=== PATIENT | male | born 1955 | race Caucasian/White ===

== ENCOUNTER 2024-03-31 10:18 | Emergency (ER) | payer OTHER, MEDICARE, MEDICAID, SELFPAY ==
[2024-03-31 10:47] VITALS: BP 138/85; PULSE 74; RESP 20; TEMP 36.8; O2SAT 99
[2024-03-31 11:10] LABS: MANUAL DIFF FLAG NO
[2024-03-31 11:11] LABS: Basophils Absolute Auto 0.1 X10*3/uL (0.0-0.2); Basophils Percent Auto 0.9 % (0-2); Eosinophils Absolute Auto 0.2 X10*3/uL (0.0-0.4); Hemoglobin 12.9 g/dl (14.0-18.0); Imm Gran Abs Auto 0.01 X10*3/uL (0.00-0.03); Imm Gran Pct Auto 0.2 % (0.0-0.4); Lymphocytes Absolute Auto 0.9 X10*3/uL (1.2-4.9); Lymphocytes Percent Auto 14.7 % (20-40); Mean Corpuscular HGB Conc 34.9 g/dl (31.0-36.0); Mean Corpuscular Hemoglobin 30.3 pg (27.0-33.0); Mean Corpuscular Volume 86.9 fL (80.0-98.0); Mean Platelet Volume 9.1 fL (9.4-12.4); Monocytes Absolute Auto 0.7 X10*3/uL (0.1-1.2); Monocytes Percent Auto 11.7 % (2-11); Neutrophils Percent Auto 68.5 % (45-73); Platelet Count 191 X10*3/uL (160-400); Red Blood Count 4.26 X10*6/uL (4.60-5.80); Red Cell Distribution Width 15.1 % (11.0-16.0); White Blood Count 5.8 X10*3/uL (4.8-10.8)
[2024-03-31 11:39] LABS: Alanine Aminotransferase 19 U/L (0-40); Albumin Level 4.6 g/dL (3.5-5.0); Alkaline Phosphatase 83 U/L (39-117); Anion Gap 12 (12-20); Aspartate Amino Transferase 19 U/L (5-37); Bilirubin Direct 0.2 mg/dL (0.0-0.5); Bilirubin Total 0.5 mg/dL (0.0-1.0); Blood Urea Nitrogen 12 mg/dL (9-16); Calcium 9.5 mg/dL (8.4-10.2); Carbon Dioxide 24 mmol/L (22-29); Chloride 105 mmol/L (96-108); Creatinine Clr Calc Pharmacy 91.3; Estimated Glomerular Filt Rate > 60; Glucose Random 96 mg/dL (60-115); Lipase 9 U/L (8-78); Potassium 3.7 mmol/L (3.3-5.1); Sodium 137 mmol/L (135-145); Total Protein 8.1 g/dL (6.5-8.0)
[2024-03-31 11:43] LABS: B Type Natriuretic Peptide 157 pg/mL (<100)
[2024-03-31 13:32] VITALS: BP 148/80; PULSE 77; RESP 20; TEMP 37; O2SAT 97
--- NOTE | 2024-03-31 15:08 | ED.GENADULT ---
HPI - General Adult General Chief complaint: Extremity Injury, Lower Stated complaint: leg issues Time Seen by Provider: 03/31/24 15:03 Source: patient Mode of arrival: ambulatory Limitations: no limitations History of Present Illness HPI narrative: Patient is a 68-year-old male with past medical history of non-Hodgkin's lymphoma currently in remission by his account since October of 2023 still following by Oncology, hypertension, hyperlipidemia who presents emergency department for evaluation of painful lumps to the bilateral lower extremities. He reports that he 1st started with a painful lump to the proximal medial lower leg about 1 month ago. He was seen by his primary care doctor, an ultrasound was obtained which revealed no evidence of a blood clot, he states his PCP has ordered an MRI but he is awaiting insurance approval. Over the past month he has developed additional lumps on the leg, to the right proximal medial lower leg and a small 1 to the right anterior henson. They are red and painful to the touch. He also states he has 2 palpable lumps in the distal medial thigh 1 on each side. Related Data Allergies Allergy/AdvReac Type Severity Reaction Status Date / Time No Known Allergies Allergy Verified 03/31/24 10:52 Review of Systems Review of Systems: Yes all other systems are reviewed and are negative PMFSH Past Medical History Attestation statement: The following information was validated with the patient. Source: old records reviewed Social History Social History Do you have a plan to hurt others: No Plan Physical Exam ED Vital Signs: Vital Signs - 24 hr 03/31/24 10:47 03/31/24 13:32 Temperature 98.3 F 98.6 F Pulse Rate 74 77 Respiratory Rate 20 20 Blood Pressure 138/85 148/80 H Pulse Oximetry 99 97 Oxygen Delivery Method Room Air Room Air BMI result Body Mass Index 30.0 Appearance: Alert.?Oriented to person, place and time. No acute distress.?Normal affect. Eyes: Pupils equal, round and reactive to light.? ENT: Pharynx normal.?? Neck: Normal inspection.? Neck supple.?? CVS: Heart sounds normal. Normal heart rate and rhythm.? Pulses normal.?? Respiratory: No respiratory distress.? Lung sounds clear to auscultation bilaterally?? Abdomen: Soft and non-tender. Normoactive bowel sounds. No pulsatile mass.?? Skin: Skin warm and dry.? Normal skin color. Bilateral lower extremities with erythematous painful nodules, no central fluctuance, warm and tender to touch ? Extremities: 1+ pitting bilateral lower extremity edema.? No calf ttp? Neuro: Moves all extremities spontaneously. Sensation intact bilaterally. Ambulates with normal steady gait. Medical Decision Making Medical Decision Making [facility] Narrative: Patient is a 68-year-old male with past medical history of non-Hodgkin's lymphoma in remission, hypertension, hyperlipidemia presenting to emergency department for evaluation of painful red lumps to the bilateral lower extremities as per HPI. Pertinent physical exam findings as per PE portion of this note. My attending doctor Salvador also evaluated the patient at bedside. Concern at this time for superficial skin infection, for which prescribed a course of doxy given the warmth and redness present. No area of fluctuance to suggest an abscess that would be amenable to incision and drainage. Given location, lower suspicion that this is secondary to his lymphoma. Reviewed worrisome signs and symptoms that would warrant prompt re-evaluation, otherwise discussed outpatient follow-up with PCP and oncologist, advised to contact their offices in 2 days. Advised use of acetaminophen and ibuprofen for pain in addition to his gabapentin which is chronically prescribed for neuropathy. 2+ DP/PT pulse bilaterally. No calf tenderness. Findings not consistent with DVT, given superficial presentation Differential Diagnosis Differential Diagnoses: The differential diagnosis associated with the presentation includes (See narrative above) Admission/Observation Consideration of admission/observation: Escalation of care including admission/observation considered Lab Data [facility] Lab Attestation statement: I reviewed the patient's lab results. CBC shows no leukocytosis, a mild anemia that does not meet transfusion criteria, no thrombocytopenia. No electrolyte derangement. No PÉREZ. No thrombocytopenia 03/31/24 11:06 03/31/24 11:06 Labs: Lab Results 03/31/24 Range/Units 11:06 WBC 5.8 (4.8-10.8) X10*3/uL RBC 4.26 L (4.60-5.80) X10*6/uL Hgb 12.9 L (14.0-18.0) g/dl Hct 37.0 L (42.0-52.0) % MCV 86.9 (80.0-98.0) fL MCH 30.3 (27.0-33.0) pg MCHC 34.9 (31.0-36.0) g/dl RDW 15.1 (11.0-16.0) % Plt Count 191 (160-400) X10*3/uL MPV 9.1 L (9.4-12.4) fL Immature Gran % (Auto) 0.2 (0.0-0.4) % Neut % (Auto) 68.5 (45-73) % Lymph % (Auto) 14.7 L (20-40) % [place] % (Auto) 11.7 H (2-11) % Eos % (Auto) 4.0 (0-4) % Baso % (Auto) 0.9 (0-2) % Lymph # (Auto) 0.9 L (1.2-4.9) X10*3/uL [place] # (Auto) 0.7 (0.1-1.2) X10*3/uL Eos # (Auto) 0.2 (0.0-0.4) X10*3/uL Baso # (Auto) 0.1 (0.0-0.2) X10*3/uL Abs Immat Gran (auto) 0.01 (0.00-0.03) X10*3/uL Absolute Neuts (auto) 4.0 (2.0-8.3) x10*3/uL Absolute Nucleated RBC 0.000 (0.0-0.012) X10*3/uL Nucleated RBC % (auto) 0.0 (0.0-0.2) /100WBC Sodium 137 (135-145) mmol/L Potassium 3.7 (3.3-5.1) mmol/L Chloride 105 (96-108) mmol/L Carbon Dioxide 24 (22-29) mmol/L Anion Gap 12 (12-20) BUN 12 (9-16) mg/dL Creatinine 0.99 (0.5-1.4) mg/dL Estim Creat Clear Calc 91.3 Estimated GFR > 60 Random Glucose 96 (60-115) mg/dL Calcium 9.5 (8.4-10.2) mg/dL Total Bilirubin 0.5 (0.0-1.0) mg/dL Direct Bilirubin 0.2 (0.0-0.5) mg/dL AST 19 (5-37) U/L ALT 19 (0-40) U/L Alkaline Phosphatase 83 (39-117) U/L C-Reactive Protein 0.39 (< or = 0.50) mg/dL B-Natriuretic Peptide 157 H (<100) pg/mL Total Protein 8.1 H (6.5-8.0) g/dL Albumin 4.6 (3.5-5.0) g/dL Lipase 9 (8-78) U/L Independent Historian Clinical information obtained from an independent historian. History obtained from or confirmed by: Spouse External Record Review External record reviewed: Outpatient record Prescription Management I considered prescription management with: Antibiotic Discharge Plan Discharge Clinical Impression: Cellulitis of leg Patient Disposition: Home, Self-Care Instructions: Cellulitis (ED) Additional Instructions: As discussed, presentation is concerning for a superficial cellulitis/infection of the skin. A prescription for an antibiotic has been sent to your pharmacy, please complete the entire course. On doxycycline, do not take pills immediately before going to bed and swallow pills with plenty of water. Avoid direct sunlight, iron, antacids, and Pepto Bismol. Call your provider if you develop new ringing in your ears, new problems hearing, dizziness, difficulty swallowing, rash, abdominal discomfort, nausea, or diarrhea.? Contact your primary care provider/oncologist office 1st thing Tuesday morning to arrange for a follow-up visit. Return with any new or worsening symptoms or concerns
[2024-03-31 15:33] LABS: C Reactive Protein 0.39 mg/dL (< or = 0.50)
[2024-03-31 16:33] VITALS: BP 148/80; PULSE 77; RESP 20; TEMP 37; O2SAT 97
== END 2024-03-31 16:34 | disposition home or self-care (01) ==
PROVIDERS: Nurse Practitioner Family; Emergency Provider Emergency Medicine; PCP Internal Medicine
DX: L03.115 Cellulitis of right lower limb (principal); L03.116 Cellulitis of left lower limb; M79.604 Pain in right leg; R60.0 Localized edema; I10 Essential (primary) hypertension; E78.5 Hyperlipidemia, unspecified
CPT/HCPCS: 36415; 80048; 80076; 83690; 83880; 85025; 86140; 99282; 99283

== ENCOUNTER 2024-04-23 15:45 | Emergency (ER) | payer OTHER, MEDICARE, MEDICAID, SELFPAY ==
--- NOTE | ~2024-04-23 | CT_ITS ---
CLINICAL HISTORY: left facial droop CT head without contrast Comparison: None Findings: Involutional change and nonspecific white matter hypodensity. No intracranial mass, midline shift, hydrocephalus, or acute hemorrhage. Orbits, paranasal sinuses, and mastoid air cells are unremarkable. No skull fracture Impression: 1. No acute findings This document has been electronically signed by: Tayler Arvizu MD on 04/23/2024 17:02:16
[2024-04-23 16:05] VITALS: BP 138/78; PULSE 96; RESP 18; TEMP 36.6; O2SAT 97; BMI 29.1
--- NOTE | 2024-04-23 16:06 | ED.NEUROSD ---
HPI - Neuro Symptoms/Deficit General Chief Complaint: General Medical Stated Complaint: Left face droopy started tuesday Time Seen by Provider: 04/23/24 21:57 Source: patient, RN notes reviewed and old records reviewed Mode of arrival: ambulatory Limitations: no limitations History of Present Illness ED Provider: Jennie CARR Narrative: 68-year-old male past medical history significant for hypertension, COPD presents for evaluation of left facial droop. Patient reports left facial droop for the last 3 days. He woke up Tuesday morning with drooping to left side of his face and when he tried to drink tea it was dripping out of the corner of his mouth. He has no headache or weakness to any other part of his body. He reports that he was not able to close his left eye Denies any fevers or chills He does not spend a lot of time outside Related Data Previous Rx's ?Medication ?Instructions ?Recorded doxycycline hyclate 100 mg capsule 100 mg PO BID #14 caps 03/31/24 prednisone 20 mg tablet 40 mg (2 x 20 mg) PO DAILY #8 tabs 04/23/24 valacyclovir 1 gram tablet 1,000 mg PO TID #20 tabs 04/23/24 Allergies Allergy/AdvReac Type Severity Reaction Status Date / Time No Known Allergies Allergy Verified 04/23/24 16:09 Review of Systems Constitutional: Constitutional: Denies body ache(s), Denies chills, Denies fever(s), Denies frequent falls and Denies headache(s) Eyes: Eyes: Denies blurry vision ENT: Denies vertigo and Denies headache(s) Cardiovascular: Cardiovascular: Denies chest pain and Denies dyspnea Respiratory: Respiratory: Denies cough and Denies dyspnea Gastrointestinal: Gastrointestinal: Denies abdominal pain, Denies nausea and Denies vomiting Musculoskeletal: Musculoskeletal: Denies back pain Integumentary/Breasts: Skin/Breast: Denies rash Neurologic: Denies vertigo, Denies frequent falls and Denies headache(s) Comments: Left facial droop Psychiatric: Psychiatric: Denies anxiety PMFSH Social History Social History Advance Directives: No Advance Directives Information Provided: No Do you have a plan to hurt others: No Plan Physical Exam Vital Signs: Vital Signs: Last Vital Signs Temp 98.2 F 04/23/24 21:52 Pulse 90 04/23/24 21:52 Resp 18 02/17/25 21:52 BP 140/76 H 04/23/24 21:52 Pulse Ox 97 04/23/24 21:52 O2 Del Method Room Air 04/23/24 21:52 BMI result Body Mass Index 29.1 Const: General: healthy appearing, comfortable, no acute distress, alert and awake Nutritional Appearance: well nourished Orientation/consciousness: patient oriented x3 HEENT: Head: Yes normocephalic and Yes atraumatic Eyes: Eyelids: Yes eyelids normal Conjunctivae: conjunctivae normal Sclerae: sclerae normal Corneas: corneas normal Pupils: Equal, round and reactive pupils present EOM: EOMs intact bilaterally Neck: Neck: Yes full ROM Resp: Effort & Inspection: normal respiratory effort, able to speak in complete sentences and not labored Skin: General skin exam: elasticity normal Neuro: Other: Left-sided facial droop affecting the left eyebrow, left lower eyelid, left side of the mouth. This also affects the forehead as the patient is unable to wrinkle the left side of his forehead. General: patient oriented x3 Cranial nerves: Yes Equal, round and reactive pupils present and Yes Bilaterally intact EOM present Cognition (Neuro): normal cognition Course Course Course Narrative: This is an RME: Additional HPI, ROS, PE not included below will be deferred to primary provider. RME assessment and note performed by: Kitty Bay PA-C This is a 68-year-old male with past medical history of non-Hodgkin's lymphoma currently in remission by his account following by Oncology, hypertension, hyperlipidemia who presents emergency department for evaluation of left sided facial droop since tuesday morning. Woke up with left sided facial droop. Reports yesterday his left eye started to be effected as well. No pain. Positive left-sided facial droop, with delayed left eye blinking. Negative pronator drift. He is not on anticoagulation. He is not on anticoagulation. Plan: Labs, CT head, further ER evaluation needed. Medical Decision Making Medical Decision Making [facility] Narrative: 68-year-old male past medical history as documented above presents for evaluation of left-sided facial droop. 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 This affects the forehead which differentiate this from a CVA. He would have a CT scan of the brain that was unremarkable. Labs are reassuring, EKG with no significant change compared to previous. He has no chest pain. The patient be discharged with prednisone and valacyclovir for Ruiz's palsy. I did add on Lyme testing however given the time of year in the fact that the patient does not spend a lot of time outdoors this is less likely Differential Diagnosis Differential Diagnoses: The differential diagnosis associated with the presentation includes Uriz's palsy CVA TIA Neuropathy Cranial nerve 7 palsy Admission/Observation Consideration of admission/observation: Escalation of care including admission/observation considered Lab Data [facility] Lab Attestation statement: I reviewed the patient's lab results. No leukocytosis or significant anemia. Normal platelet count. No significant electrolyte abnormalities. Normal renal function 04/23/24 17:29 04/23/24 17:29 Labs: Lab Results 04/23/24 Range/Units 17:29 WBC 8.4 (4.8-10.8) X10*3/uL RBC 4.43 L (4.60-5.80) X10*6/uL Hgb 13.5 L (14.0-18.0) g/dl Hct 39.2 L (42.0-52.0) % MCV 88.5 (80.0-98.0) fL MCH 30.5 (27.0-33.0) pg MCHC 34.4 (31.0-36.0) g/dl RDW 15.0 (11.0-16.0) % Plt Count 234 (160-400) X10*3/uL MPV 9.4 (9.4-12.4) fL Immature Gran % (Auto) 0.4 (0.0-0.4) % Neut % (Auto) 71.1 (45-73) % Lymph % (Auto) 11.7 L (20-40) % [place] % (Auto) 12.5 H (2-11) % Eos % (Auto) 3.7 (0-4) % Baso % (Auto) 0.6 (0-2) % Lymph # (Auto) 1.0 L (1.2-4.9) X10*3/uL [place] # (Auto) 1.1 (0.1-1.2) X10*3/uL Eos # (Auto) 0.3 (0.0-0.4) X10*3/uL Baso # (Auto) 0.1 (0.0-0.2) X10*3/uL Abs Immat Gran (auto) 0.03 (0.00-0.03) X10*3/uL Absolute Neuts (auto) 6.0 (2.0-8.3) x10*3/uL Absolute Nucleated RBC 0.000 (0.0-0.012) X10*3/uL Nucleated RBC % (auto) 0.0 (0.0-0.2) /100WBC ESR 10 (0-15) MM/HR PT 12.9 H (10.9-12.4) SEC INR 1.1 (0.9-1.1) Sodium 141 (135-145) mmol/L Potassium 4.3 (3.3-5.1) mmol/L Chloride 105 (96-108) mmol/L Carbon Dioxide 26 (22-29) mmol/L Anion Gap 14 (12-20) BUN 16 (9-16) mg/dL Creatinine 1.15 (0.5-1.4) mg/dL Estim Creat Clear Calc 77.5 Estimated GFR > 60 Random Glucose 104 (60-115) mg/dL Calcium 10.4 H D (8.4-10.2) mg/dL Magnesium 2.2 (1.6-2.6) mg/dL Total Bilirubin 0.6 (0.0-1.0) mg/dL Direct Bilirubin 0.2 (0.0-0.5) mg/dL AST 30 (5-37) U/L ALT 21 (0-40) U/L Alkaline Phosphatase 85 (39-117) U/L C-Reactive Protein 0.30 (< or = 0.50) mg/dL Total Protein 8.6 H (6.5-8.0) g/dL Albumin 4.8 (3.5-5.0) g/dL Radiology Impression Discussion of test interpretation with radiology: I have reviewed the radiologist's reading. Radiologist Impression: Findings: Involutional change and nonspecific white matter hypodensity. No intracranial mass, midline shift, hydrocephalus, or acute hemorrhage. Orbits, paranasal sinuses, and mastoid air cells are unremarkable. No skull fracture Impression: 1. No acute findings This document has been electronically signed by: Tayler Arvizu MD on 04/23/2024 17:02:16 Discharge Plan Discharge Clinical Impression: Ruiz's palsy Patient Disposition: Home, Self-Care Instructions: Ruiz Palsy (ED) Additional Instructions: Your workup in the ER today was reassuring. Your symptoms are most likely related to a condition called Ruiz's palsy. 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 You should also wear an eye patch at night to prevent your eye from drying out Follow-up with your primary doctor, return for new or worsening symptoms Prescriptions: New prednisone 20 mg tablet 40 mg PO DAILY Qty: 8 0RF valacyclovir 1 gram tablet 1,000 mg PO TID Qty: 20 0RF No Action doxycycline hyclate 100 mg capsule 100 mg PO BID Qty: 14 0RF Print Language: [place]
[2024-04-23 17:34] LABS: MANUAL DIFF FLAG NO
[2024-04-23 17:44] LABS: Basophils Absolute Auto 0.1 X10*3/uL (0.0-0.2); Basophils Percent Auto 0.6 % (0-2); Eosinophils Absolute Auto 0.3 X10*3/uL (0.0-0.4); Eosinophils Percent Auto 3.7 % (0-4); Hematocrit 39.2 % (42.0-52.0); Hemoglobin 13.5 g/dl (14.0-18.0); Imm Gran Abs Auto 0.03 X10*3/uL (0.00-0.03); Imm Gran Pct Auto 0.4 % (0.0-0.4); Lymphocytes Percent Auto 11.7 % (20-40); Mean Corpuscular HGB Conc 34.4 g/dl (31.0-36.0); Mean Corpuscular Hemoglobin 30.5 pg (27.0-33.0); Mean Corpuscular Volume 88.5 fL (80.0-98.0); Mean Platelet Volume 9.4 fL (9.4-12.4); Monocytes Absolute Auto 1.1 X10*3/uL (0.1-1.2); Monocytes Percent Auto 12.5 % (2-11); Neutrophils Percent Auto 71.1 % (45-73); Platelet Count 234 X10*3/uL (160-400); Red Blood Count 4.43 X10*6/uL (4.60-5.80); White Blood Count 8.4 X10*3/uL (4.8-10.8)
[2024-04-23 17:47] LABS: INTERNATIONAL NORM RATIO 1.1 (0.9-1.1); Prothrombin Time 12.9 SEC (10.9-12.4)
[2024-04-23 18:08] LABS: Alanine Aminotransferase 21 U/L (0-40); Albumin Level 4.8 g/dL (3.5-5.0); Alkaline Phosphatase 85 U/L (39-117); Anion Gap 14 (12-20); Aspartate Amino Transferase 30 U/L (5-37); Bilirubin Direct 0.2 mg/dL (0.0-0.5); Bilirubin Total 0.6 mg/dL (0.0-1.0); Blood Urea Nitrogen 16 mg/dL (9-16); Calcium 10.4 mg/dL (8.4-10.2); Carbon Dioxide 26 mmol/L (22-29); Chloride 105 mmol/L (96-108); Creatinine Clr Calc Pharmacy 77.5; Estimated Glomerular Filt Rate > 60; Glucose Random 104 mg/dL (60-115); Magnesium 2.2 mg/dL (1.6-2.6); Potassium 4.3 mmol/L (3.3-5.1); Sodium 141 mmol/L (135-145); Total Protein 8.6 g/dL (6.5-8.0)
[2024-04-23 18:22] LABS: Erythrocyte Sedimentation Rate 10 MM/HR (0-15)
[2024-04-23 21:52] VITALS: BP 140/76; PULSE 90; RESP 18; TEMP 36.8; O2SAT 97
[2024-04-23] MEDS: predniSONE 20 MG TABLET 40 MG PO (23:00)
[2024-04-23] MEDS: valACYclovir HCL 1,000 MG TABLET 1000 MG PO (23:00)
[2024-04-23 23:03] VITALS: BP 140/76; PULSE 90; RESP 18; TEMP 36.8; O2SAT 97
[2024-04-24 13:34] LABS: Lyme Abs Screen <0.90 index
[2024-04-25 19:04] LABS: Babesia IgG <1:64 titer (<1:64); Babesia IgM <1:20 titer (<1:20)
[2024-04-25 23:02] LABS: A. Phagocytophilum Ab IgG <1:64 (<1:64); A. Phagocytophilum Ab IgM <1:20 (<1:20); E. Chaffeensis Ab IgG <1:64 (<1:64); E. Chaffeensis Ab IgM <1:20 (<1:20)
== END 2024-04-23 23:03 | disposition home or self-care (01) ==
PROVIDERS: Physician Assistant; Physician Assistant Medical; Emergency Provider Emergency Medicine; PCP Internal Medicine
DX: G51.0 Bell's palsy (principal); R10.2 Pelvic and perineal pain; I10 Essential (primary) hypertension; Z79.899 Other long term (current) drug therapy
CPT/HCPCS: 36415; 70450; 80048; 80076; 83735; 85025; 85610; 85652; 86140; 86617; 86618; 86666; 86753; 99282; 99284

== ENCOUNTER → 2024-04-23 16:12 | Outpatient (BNV) | payer OTHER, MEDICARE, MEDICAID, SELFPAY | PROVIDERS: PCP Internal Medicine; Visit Provider Radiology Diagnostic Radiology | DX: R29.810 Facial weakness (principal) | CPT/HCPCS: 70450 ==